=== PATIENT | female | born 1950 | race Caucasian/White ===

== ENCOUNTER 2017-12-02 10:46 | Outpatient (CLI) | payer OTHER ==
--- NOTE | 2017-12-02 12:04 | RAD ---
CHEST 2 VIEWS: Date: 12/02/17 HISTORY: Chest pain. COMPARISON: 08/30/02. FINDINGS: Cardiac silhouette and pulmonary vasculature are unremarkable. Mild reticular interstitial prominence is nonspecific. Mediastinum is midline. There I no confluent air space consolidation, pneumothorax, or pleural fluid apparent. IMPRESSION: No active cardiopulmonary abnormalities are demonstrated. POS: [facility]
== END 2017-12-02 10:47 | disposition home or self-care (01) ==
LOC: MADRAD 10:46
PROVIDERS: ATTEND Family Medicine
DX: S20.211A Contusion of right front wall of thorax, initial encounter (principal)
CPT/HCPCS: 71046

== ENCOUNTER 2017-12-29 10:32 | Outpatient (CLI) | payer OTHER ==
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
== END 2017-12-29 10:33 | disposition home or self-care (01) ==
LOC: MADCT 10:32
PROVIDERS: ATTEND Family Medicine
DX: S20.219A Contusion of unspecified front wall of thorax, initial encounter (principal); K76.89 Other specified diseases of liver; S22.20XD Unspecified fracture of sternum, subsequent encounter for fracture with routine healing
CPT/HCPCS: 71250

== ENCOUNTER 2024-02-04 14:41 | Outpatient (CLI) | payer OTHER ==
[~2024-02-04 14:41] MED LIST: Iopamidol 370 76% 100 ML VIAL ONE
== END 2024-02-04 14:42 | disposition home or self-care (01) ==
LOC: MADCT 14:41
PROVIDERS: ATTEND Family Medicine
DX: J96.10 Chronic respiratory failure, unspecified whether with hypoxia or hypercapnia (principal); D59.9 Acquired hemolytic anemia, unspecified; U09.9 Post COVID-19 condition, unspecified; R91.1 Solitary pulmonary nodule
CPT/HCPCS: 36415; 71260; 82565; Q9967